=== PATIENT | male | born 1960 | race American Indian/Alaskan Native ===

== ENCOUNTER 2017-12-19 23:28 | Emergency (ER) | payer OTHER ==
[2017-12-19 23:28] VITALS: BMI 26.1
[2017-12-19 23:52] VITALS: BP 152/82; PULSE 100; RESP 18; TEMP 99.9; O2SAT 99
--- NOTE | 2017-12-20 01:39 | C.PDOC ---
History Of Present Illness 57 year old male presents to the ER with a complaint of a cough for the past 5 days that has worsened today. Patient states he feel SOB and has associated subjective fever, chills, yellow/green sputum, and sore throat. Denies chest pain, nausea, or vomiting. Time Seen by Provider: 12/19/17 23:41 Chief Complaint (Nursing): Cough, Cold, Congestion History Per: Patient History/Exam Limitations: no limitations Current Symptoms Are (Timing): Still Present Location Of Pain: None Sick Contacts (Context): None Associated Symptoms: Fever (Subjective), Chills, Sore Throat, Sputum. denies: Nausea, Vomiting Ear Symptoms: Bilateral: None Recent travel outside of the [place]: No Past Medical History Reviewed: Historical Data, Nursing Documentation, Vital Signs Vital Signs: Last Vital Signs Temp 99.9 F H 12/19/17 23:52 Pulse 100 H 12/19/17 23:52 Resp 18 12/19/17 23:52 BP 152/82 H 12/19/17 23:52 Pulse Ox 99 12/20/17 01:57 - [facility] Procedures CYSTOSCOPY NEC (01/12/13) RETROGRADE PYELOGRAM (01/12/13) URETERAL CATHETERIZATION (01/12/13) Family History: States: Unknown Family Hx - Social History Hx Tobacco Use: No Hx Alcohol Use: Yes Hx Substance Use: No - Immunization History Hx Tetanus Toxoid Vaccination: No Hx Influenza Vaccination: Yes Hx Pneumococcal Vaccination: No Review Of Systems Constitutional: Positive for: Fever (Subjective), Chills ENT: Positive for: Throat Pain. Negative for: Ear Pain Cardiovascular: Negative for: Chest Pain, Palpitations Respiratory: Positive for: Cough, Shortness of Breath, Sputum Gastrointestinal: Negative for: Nausea, Vomiting, Abdominal Pain Physical Exam - Physical Exam Appears: Non-toxic Skin: Normal Color, Warm, Dry Head: Atraumatic, Normacephalic Eye(s): bilateral: Normal Inspection Ear(s): Bilateral: Normal Nose: Normal Oral Mucosa: Moist Throat: Erythema, No Exudate Neck: Normal, Supple Chest: Symmetrical, No Tenderness Cardiovascular: Rhythm Regular Respiratory: Normal Breath Sounds, No Rales, No Rhonchi, No Wheezing Gastrointestinal/Abdominal: Soft, No Tenderness Back: No CVA Tenderness Neurological/Psych: Oriented x3, Normal Speech ED Course And Treatment O2 Sat by Pulse Oximetry: 99 (Room air) Pulse Ox Interpretation: Normal Medical Decision Making Medical Decision Making: Patient started on z-pack to treat for URI, will discharge with instructions to follow up with PMD or return if symptoms worsen. Disposition Counseled Patient/Family Regarding: Diagnosis, Need For Followup, Rx Given - Disposition Referrals: Musa Lazcano MD [Staff Provider] - Disposition: HOME/ ROUTINE Disposition Time: 00:25 Condition: GOOD Additional Instructions: Follow up with your primary medical doctor or clinic in 2-5 days for further evaluation. Take medications as prescribed. Return to the emergency department at any time if symptoms persist or worsen. Prescriptions: Azithromycin [Zithromax] 250 mg PO DAILY #4 tab Ciclopirox [Penlac] 6.6 ml TP DAILY #1 solution Promethazine HCl/Codeine [Prometh-Codein 6.25-10 mg/5 ml] 5 ml PO Q8 PRN #200 ml PRN Reason: Cough Instructions: Upper Respiratory Infection (ED) Forms: [facility] (Croatian), Work Excuse - POA Present On Arrival: None - Clinical Impression Clinical Impression: Upper respiratory infection - PA / ENGINEERING RESEARCH MANAGER / Resident Statement MD/DO has reviewed & agrees with the documentation as recorded. - Scribe Statement The provider has reviewed the documentation as recorded by the Scribmatt Gonzalez All medical record entries made by the Scribe were at my direction and personally dictated by me. I have reviewed the chart and agree that the record accurately reflects my personal performance of the history, physical exam, medical decision making, and the department course for this patient. I have also personally directed, reviewed, and agree with the discharge instructions and disposition.
== END 2017-12-20 00:27 | disposition home or self-care (01) ==
LOC: C.ER 23:28
DX: J06.9 Acute upper respiratory infection, unspecified (principal)